=== PATIENT | male | born 1950 | race Caucasian/White ===

== ENCOUNTER 2019-03-17 08:00 | Outpatient (RCR) | payer BC | END 2019-03-17 09:00 | disposition home or self-care (01) | LOC: CARDREHAB 08:00 | DX: Z48.812 Encounter for surgical aftercare following surgery on the circulatory system (principal); Z95.5 Presence of coronary angioplasty implant and graft; I25.10 Atherosclerotic heart disease of native coronary artery without angina pectoris ==

== ENCOUNTER → 2020-02-08 | Outpatient (CLI) | payer BC | LOC: RAD 09:02 | DX: M51.36 Other intervertebral disc degeneration, lumbar region (principal); M19.072 Primary osteoarthritis, left ankle and foot; M77.9 Enthesopathy, unspecified; I70.202 Unspecified atherosclerosis of native arteries of extremities, left leg; I70.201 Unspecified atherosclerosis of native arteries of extremities, right leg ==